=== PATIENT | female | born 1980 | race Caucasian/White ===

== ENCOUNTER 2016-05-24 19:50 | Emergency (ER) | payer MEDICAID, OTHER ==
[~2016-05-24] VITALS: Ht 149.9 cm; Wt 52.2 kg
[~2016-05-24 19:50] MED LIST: MAG-19 PO; OMEP20CA16 PO; ONDA4TAB35 PO
[2016-05-24 20:10] VITALS: Ht 149.9 cm; Wt 52.2 kg
[2016-05-24] MEDS ORDERED: METOCLOPRAMIDE 10 MG TAB PO STA (22:06)
[2016-05-24] MEDS ORDERED: ACETAMINOPHEN 500 MG TAB PO STA (22:06)
[2016-05-24 23:56] LABS: ADD UMIC YES; URINE BILIRUBIN (Dip) NEGATIVE (NEGATIVE); URINE BLOOD (Dip) TRACE (NEGATIVE); URINE COLOR YELLOW (YELLOW); URINE GLUCOSE (Dip) NEGATIVE (NEGATIVE); URINE KETONES (Dip) TRACE (NEGATIVE); URINE LEUKOCYTE ESTERASE (Dip) NEGATIVE (NEGATIVE); URINE NITRITE (Dip) NEGATIVE (NEGATIVE); URINE TOTAL PROTEIN (Dip) NEGATIVE (NEGATIVE); URINE UROBILINOGEN (Dip) 1.0 E.U./dL (0.1-1.0)
[2016-05-25 00:33] LABS: SQUAMOUS EPITHELIAL CELL,UR FEW; URINE RBCS 0-2 /HPF (0)
[2016-05-25 00:34] LABS: BACTERIA,URINE FEW
[2016-05-25] MEDS ORDERED: ACET325T33 PO (00:50)
[2016-05-25] MEDS ORDERED: ONDA4TAB14 PO (00:51)
--- NOTE | 2016-05-25 01:27 | ERD ---
ER Documentation Chief Complaint Date/Time DATE: 05/25/16 TIME: 01:26 Chief Complaint ROBIN >LF SIDE X2 DAYS +NAUSEA IBUPROFEN INEFFECTIVE HPI . This is a 36-year-old female presenting to the emergency room complaining of a left-sided headache, nausea and photophobia for past 2 days. Patient admits to having an episode of vomiting earlier today. Patient states that she tried ibuprofen at 3 PM without any relief. Patient denies any blurry vision or neuro deficits. Patient rates the pain 7 out of 10 ROS All systems reviewed and are negative except as per history of present illness. Medications Home Meds Active Scripts Ondansetron (Ondansetron Odt) 4 Mg Tab.rapdis, 4 MG PO Q6H Y for NAUSEA AND/OR VOMITING, #10 TAB Prov:GEOVANNI BEAN PA-C 05/25/16 Acetaminophen* (Tylenol*) 325 Mg Tablet, 2 TAB PO Q4 Y for PAIN AND OR ELEVATED TEMP, #30 TAB Prov:GEOVANNI BEAN PA-C 05/25/16 Ondansetron Hcl* (Zofran* ODT) 4 mg -ODT Tab.disper, 4 MG PO Q8 Y for NAUSEA AND /OR VOMITING, #30 TAB Prov:NELIA ISIDRO NP 05/01/15 Magaldrate/Simethicone* (Mylanta*) 355 Ml Susp, 30 ML PO QID Y for GASTROINTESTINAL UPSET, #1 BOTTLE Prov:NELIA ISIDRO NP 05/01/15 Omeprazole* (Omeprazole*) 20 Mg Capsule.dr, 20 MG PO DAILY, #30 CAP Prov:NELIA ISIDRO NP 05/01/15 Reported Medications [none] Unknown Strength No Conflict Check 05/01/15 Allergies Allergies: Coded Allergies: No Known Allergy (Unverified , 05/24/16) PMhx/Soc Medical and Surgical Hx: pt denies Surgical Hx Hx Cardiac Disorders: Yes (hypertension) Hx Alcohol Use: No Hx Substance Use: No Hx Tobacco Use: No Smoking Status: Never smoker Physical Exam Vitals Vital Signs Date Time Temp Pulse Resp B/P Pulse Ox O2 Delivery O2 Flow Rate FiO2 05/24/16 20:10 98.4 72 18 174/89 100 Physical Exam GENERAL: well-developed/well-nourished, in no apparent distress, non-toxic appearing HENT: NC/AT, bilateral tympanic membrane is normal with good cone of light, nares patent, oropharynx clear without exudates EYES: Conjunctiva normal, PERRLA, EOMI, no nystagmus noted NECK: Supple, no lymphadenopathy PULM: CTA bilaterally, no rales, rhonchi, or wheezing heard CV: Normal S1S2, RRR, good capillary refill GI: Soft, non-distended, normal bowel sounds, non-tender BACK: No midline tenderness, no masses, No CVAT EXT: No clubbing, cyanosis, or edema NEURO: Alert and orientated to person, place, and time. CN II-IIX intact. Gait and coordination were normal. Hand hearing and speech assistant strength were equal and within normal limits SKIN: Intact, normal turgor PSYCH: Normal mood and mentation, patient denied SI Results 24 hrs Laboratory Tests Test 05/24/16 22:45 Urine Bacteria FEW Urine Bilirubin NEGATIVE Urine Clarity CLEAR Urine Color YELLOW Urine Glucose NEGATIVE% Urine Hemoglobin TRACE Urine Ketones TRACE Urine Leukocyte Esterase NEGATIVE Urine Microscopic RBC 0-2/HPF Urine Microscopic WBC 0-2/HPF Urine Nitrite NEGATIVE Urine Specific [place] 1.025 Urine Squamous Epithelial Cells FEW Urine Total Protein NEGATIVE Urine Urobilinogen 1.0 E.U./dL Urine pH 6.0 Current Medications Medications (Trade) Dose Ordered Sig/Crow Route PRN Reason Start Time Stop Time Status Last Admin Dose Admin Acetaminophen (Tylenol Tab) 1,000 mg ONCE STAT PO 05/24/16 22:06 05/24/16 22:08 DC 05/24/16 22:37 Metoclopramide HCl (Reglan) 10 mg ONCE STAT PO 05/24/16 22:06 05/24/16 22:08 DC 05/24/16 22:37 Procedures/MDM MDM: 36-year-old female presents with headache, nausea, photophobia which is likely due to migraine. My differential diagnoses include tension, migraine, and cluster headache, overuse medication headache, subarachnoid hemorrhage, meningitis, stroke. Pain relief was given in the ED with some improvement. Neurology exam was normal and I don't recommend a CT scan at this time. Patient was speaking clearly and she appears well. She did not seem to be in significant pain. In the ED patient was given Tylenol for pain and she had improvement. Patient's blood pressure was elevated (>120/80) but appears stable without evidence of hypertension emergency or urgency. The patient was counseled about the risks of hypertension and urged to pursue outpatient monitoring and therapy within a week with their primary care physician. DISPOSITION: hemodynamically stable and neurovascularly intact. Prescriptions Tylenol and Zofran were given. Discussed to follow up with a primary care physician in the next couple days. Return to the ER if condition worsens or not improving as expected. Patient agreed and understood this plan. Departure Diagnosis: Primary Impression: Headache Condition: Stable Patient Instructions: Self-Care for Headaches, Preventing Migraine Headaches: Triggers, Preventing Migraine Headaches: Medications and Lifestyle Changes Referrals: DOCTOR,NOT ON STAFF (PCP) Additional Instructions: FOLLOW UP WITH YOUR PRIMARY CARE PHYSICIAN TOMORROW.Return to this facility if you are not improving as expected. Take all medicines as directed. Return to this facility if you are not improving as expected. GEOVANNI BEAN PA-C May 25, 2016 01:27
== END 2016-05-25 01:33 | disposition left against medical advice (07) ==
LOC: FTE 19:50
DX: R51 Headache (principal); I10 Essential (primary) hypertension; R11.0 Nausea
CPT/HCPCS: 81001; Z7502; Z7610; 81003; 99283